=== PATIENT | male | born 1970 | race Caucasian/White ===

== ENCOUNTER 2018-04-29 17:34 | Inpatient (IN) | payer OTHER ==
[~2018-04-29] VITALS: Ht 185.4 cm; Wt 116.4 kg
--- NOTE | ~2018-04-29 | 2DMMODE ---
[facility] [address] [employer] [place] [address] 2 D/M-MODE ECHOCARDIOGRAM Name: BISHOPCEDRICK Room #: [facility] M.R[facility] [id number] Admission: 04/29/18 Attend Phys: Sukhi Rowan, Discharge: Date of : 74 Date of Service: 04/30/18 0911 Report #: [id number] THIS REPORT FOR: //name// APPROVED REPORT Study performed: 04/30/2018 08:24:54 EXAM: Comprehensive 2D, Doppler, and color-flow Echocardiogram Patient Location: Bedside Room #: 201 Status: routine BSA: 2.41 HR: 100 bpm BP: 141/92 mmHg Rhythm: Tachycardia Other Information Study Quality: Good Indications Dyspnea Chest Pain CHF exacerbation. Hx: HTN, tobacco abuse. 2D Dimensions RVDd: 47.94 mm IVSd: 12.03 (7-11mm) LVOT Diam: 25.42 (18-24mm) LVDd: 77.56 mm PWd: 13.98 (7-11mm) Ascending Ao: 42.94 (22-36mm) LVDs: 70.07 (25-40mm) Aortic Root: 41.36 mm Volumes Left Atrial Volume (Systole) Single Plane 4CH: 109.37 mL Single Plane 2CH: 93.05 mL LA ESV Index: 44.00 mL/m2 Aortic Valve AoV Peak Heri.: 1.45 m/s AO Peak Gr.: 8.35 mmHg LVOT Max P.93 mmHg LVOT Max V: 0.70 m/s DK Vmax: 2.44 cm2 Mitral Valve E/A Ratio: 1.4 [facility] [address] [place] [address] 2 D/M-MODE ECHOCARDIOGRAM Name: SHANKARCEDRICK Room #: [address] [place] [address]#: [id number] Admission: 04/29/18 Attend Phys: Sukhi Rowan, Discharge: Date of : 74 Date of Service: 04/30/18 0911 Report #: [id number] MV Decel. Time: 97.48 ms MV E Max Heri.: 0.91 m/s MV A Heri.: 0.67 m/s MV PHT: 28.27 ms IVRT: 55.36 ms Pulmonary Valve PV Peak Heri.: 1.03 m/s PV Peak Gr.: 4.28 mmHg Pulmonary Vein P Vein S: 0.62 m/s P Vein A: 0.36 m/s P Vein D: 0.59 m/s P Vein A Dur.: 100.3 msec P Vein S/D Ratio: 1.05 Tricuspid Valve TR Peak Heri.: 3.16 m/s RAP Estimate: 5.00 mmHg TR Peak Gr.: 39.85 mmHg PA Pressure: 45.00 mmHg Left Ventricle Left ventricle is severely dilated. There is global hypokinesis of the left ventricle. Mild concentric left ventricular hypertrophy. Left ventricular systolic function is severely decreased. LVEF is 20-25%. Right Ventricle Right ventricle is moderately dilated. Right ventricle is moderately hypokinetic. Atria Left atrium is moderately dilated. Right atrium is mildly dilated. Aortic Valve The aortic valve is normal in structure. No aortic regurgitation is present. There is no aortic valvular stenosis. Mitral Valve The mitral valve is normal in structure. Moderate mitral regurgitation. Tricuspid Valve The tricuspid valve is normal in structure. Mild tricuspid regurgitation. Estimated PAP is 45mmHg. Pulmonic Valve [facility] [address] [place] [address] 2 D/M-MODE ECHOCARDIOGRAM Name: SHANKARCEDRICK Room #: [facility] M.R.#: [id number] Admission: 04/29/18 Attend Phys: Sukhi Rowan, Discharge: Date of : 74 Date of Service: 04/30/18 0911 Report #: [id number] The pulmonary valve is normal in structure. Trace pulmonic regurgitation. Great Vessels Aortic root is dilated at 4.1cm. Ascending aorta is dilated at 4.3cm. IVC is normal in size and collapses >50% with inspiration. Pericardium There is no pericardial effusion. <Conclusion> Left ventricular systolic function is severely decreased. There is global hypokinesis of the left ventricle. LVEF 20-25%. Left atrium is moderately dilated. The aortic valve is normal in structure. No aortic regurgitation or stenosis The mitral valve is normal in structure. Moderate mitral regurgitation. Mild tricuspid regurgitation. Estimated pulmonary artery pressure of 45mmHg. Ascending aorta is dilated at 4.3cm. There is no pericardial effusion. <ELECTRONICALLY SIGNED> By: Jamie Alberto MD, FACC 04/30/18910 0 0 Jamie Alberto MD, FACC /INF
--- NOTE | ~2018-04-29 | EKG ---
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 : 1970 Requested By: Richelle Barrios Order Number: [id number] MD: Jamar Baldwin Measurements Intervals Walker Rate: 118 P: 51 OH: 134 QRS: -6 QRSD: 126 T: 82 QT: 354 QTc: 497 Interpretive Statements Sinus tachycardia Probable left atrial enlargement LVH with secondary repolarization abnormality Anterior ST elevation, probably due to LVH Electronically Signed On 04-29-2018 19:33:51 DAIRY ASSOCIATE by Jamar Baldwin [email or web address] <ELECTRONICALLY SIGNED> By: Jamar Baldwin MD 04/29/18 1933 1744 1744 MD BENOIT Bailey
--- NOTE | ~2018-04-29 | CATHLAB ---
[facility] [address] [place] [address] INVASIVE PROCEDURE REPORT Name: CEDRICK SHANKAR Room #: 201-P ADM IN M.R.#: [id number] Admission: 04/29/18 Attend Phys: Sukhi Rowan, Discharge: Date of : 74 Date of Service: 04/30/18 1730 Report #: [id number] THIS REPORT FOR: //name// APPROVED REPORT Study performed: 04/30/2018 14:01:25 Patient Details Patient Status: In-Patient Room #: The patient is a 48 year-old male Event Personnel Buzz Kaplan Investment Strategist, Heydi Bolanos RN RN, Baldomero Davis RN RN, Eliza Soto Monitor, Penelope De La Paz Procedures Performed Art Access - R femoral artery* Sam Access - L femoral vein 19582 Initial Mod Sed Same Phys/QHP Gr5y [id number] 77326 Mod Sed Same Phys/QHP Ea 601021 Right and Left Heart Cath w/or w/o Coronarie [id number] [facility] Hemostasis with Manual pressure Indication CHF Current Status: , Dyspnea, Cardiomyopathy Risk Factors Hypercholesterolemia, Hypertension, Tobacco History () Procedure Narrative The patient was brought urgently to the Cardiac Catheterization Laboratory and was prepped and draped in a sterile manner. The Right Groin^ was infiltrated with 1% Lidocaine subcutaneous anesthesia. A Right Heart Catheterization was performed with a 7 Fr. [place]-Aec catheter and pressure were recorded. Cardiac outputs were obtained by the Fransisco method. A PINNACLE 6FR Sheath #[id number] sheath was inserted into the RFA^. Coronary angiography was performed using coronary diagnostic catheters. The right coronary system was accessed and visualized with a 5FR JR 4 #[id number] catheter. The left coronary system was accessed and visualized with a 5FR JL5 #[id number] catheter. The left ventricle was accessed and visualized with a 5FR PIG 145 ANGLED #[id number] catheter. Left ventricular/Aortic Valve gradient assessed via catheter pullback. Hemostasis was obtained with manual pressure following sheath removal without any complications. The patient tolerated the procedure well and there were no complications associated with the procedure. There was no hematoma. [facility] [address] [place] [address] INVASIVE PROCEDURE REPORT Name: CEDRICK SHANKAR Room #: 201-P [facility] IN .R.#: [id number] Admission: 04/29/18 Attend Phys: Sukhi Rowan, Discharge: Date of : 74 Date of Service: 04/30/18 1730 Report #: [id number] Intraoperative Conscious Sedation Sedation start time: 14:37 Case end Time: 15:21 Fentanyl 50 mcg Versed 3 mg Fluoro Time: 3.40 minutes Dose: DAP 7615.00 cGycm2 621 mGy Contrast Type and Amount: Omnipaque 80 ml Coronary Angiography The patient's coronary anatomy is right dominant. Diagnostic Cath Left Main This is a patent vessel, with no flow-limiting lesions. LAD This is a moderate to large caliber vessel, traveling down the anterior wall and wrapping around the apex. There is no evidence for flow limiting lesions. Diagonal 1 This is a patent vessel, with no flow-limiting lesions. Circumflex This is a patent vessel, with no flow-limiting lesions. OM1 This is a patent vessel, with no flow-limiting lesions. Right Coronary This is a dominant vessel, with no flow-limiting lesions. R PDA This is a patent vessel, with no flow-limiting lesions. RPLV This is a patent vessel, with no flow-limiting lesions. Ramus This is a patent vessel, with no flow-limiting lesions. Left Ventriculography Left Ventriculography was not performed. Ejection Fraction was 20-25% based off patient's Echocardiogram. An LVEDP was measured and there is no gradient across the outflow tract. Hemodynamics The right atrial mean pressure is 26 mmHg. The right ventricular pressure is 65/24 mmHg. The pulmonary artery pressure is 69/46 mmHg with a mean of 55 mmHg. The aortic pressure is 144/115 mmHg with a mean of 129 mmHg. The left ventricular pressure is 141/22 mmHg with a mean of mmHg. The left ventricular end diastolic pressure is 39 mmHg. PaO2 saturation is 59.10 %. Arterial saturation is 97.00 %. The cardiac output using the Fransisco method is 4.37 L/min. The cardiac index using the Fransisco method is 1.81 L/min/m2. [facility] [address] [place] [address] INVASIVE PROCEDURE REPORT Name: CEDRICK SHANKAR Room #: 201-P [facility] IN M.R.#: [id number] Admission: 04/29/18 Attend Phys: Sukhi Rowan, Discharge: Date of : 74 Date of Service: 04/30/181729 Report #: [id number] Conclusion 1. Dilated, nonischemic cardiomyopathy. 2. Angiographically normal coronary arteries. 3. A right heart cardiac catheterization was performed. 4. Recommend medical therapy. <ELECTRONICALLY SIGNED> By: Buzz Kaplan MD 04/30/181729 29 29 Buzz Kaplan MD /INF
[~2018-04-29 17:34] MED LIST: CLEOCIN HCL300 MG PO; IBUPROFEN 800800 M1 PO; MEDROLDOSEPACK PO; VENTOLIN HFA 1818 GM INH
[2018-04-29 17:36] VITALS: BP 183/126
[2018-04-29 17:58] LABS: ABSOLUTE NEUTROPHILS 4.2 thou/uL (1.4-8.2); BASOPHILS 0.9 % (0.0-2.0); EOSINOPHILS 3.1 % (0.0-3.0); HEMATOCRIT 42.7 % (42.0-52.0); HEMOGLOBIN 14.2 gm/dL (14.0-18.0); LYMPHOCYTES 33.8 % (24.0-44.0); MCH 30.4 pg (26.0-34.0); MCHC 33.2 g/dL (28.0-37.0); MCV 91.4 fL (80.0-100.0); MONOCYTES 7.2 % (1.0-8.0); PLATELET COUNT 281 thou/uL (150-400); RBC 4.68 mil/uL (4.50-6.00); RDW 13.8 % (10.5-14.5); WBC 7.6 thou/uL (4.0-11.0)
[2018-04-29 18:07] LABS: ANION GAP 10 mmol/L (7-16); BUN 17 mg/dL (7-18); CALCIUM 8.7 mg/dL (8.5-10.1); CHLORIDE 102 mmol/L (98-107); CO2 26 mmol/L (21-32); CREATININE 1.2 mg/dL (0.7-1.3); GLUCOSE 123 mg/dL (74-106); POTASSIUM 3.8 mmol/L (3.5-5.1); SODIUM 138 mmol/L (136-145)
[2018-04-29 18:16] LABS: ALBUMIN 3.2 g/dL (3.4-5.0); LIPASE 154 U/L (73-393); SGOT 95 U/L (15-37); SGPT 315 U/L (30-65); TOTAL BILIRUBIN 0.5 mg/dL (<0.1-1.0); TOTAL PROTEIN 6.6 g/dL (6.4-8.2); TROPONIN-I <0.06 ng/mL (<0.06)
[2018-04-29 20:18] VITALS: BP 134/104
[2018-04-29 20:42] VITALS: BP 132/95
[2018-04-29 22:22] LABS: CHOLESTEROL 148 mg/dL (<200); HDL CHOLESTEROL 40 mg/dL (>40); LDL CHOLESTEROL 90 mg/dL (<100); TC:HDL 3.7 Ratio (Not establshd); TRIGLYCERIDE 94 mg/dL (<150); VLDL 19 mg/dL (<40)
[2018-04-29 22:23] LABS: SERUM ASSESSMENT Clear
[2018-04-30] VITALS (13 sets, daily range): BP systolic 95–155; BP diastolic 73–99
[2018-04-30 15:09] LABS: PCO2 52.2 mmHg (35.0-45.0); sO2 59.1 % (92.0-98.0)
[2018-04-30 15:11] LABS: PO2 33.8 mmHg (80.0-100.0); pH 7.315 (7.360-7.450)
[2018-04-30 15:11] LABS: BE(vivo) 2.8 mmol/L (-2 to +3); HCO3 30.2 mmol/L (22.0-26.0); PCO2 57.2 mmHg (35.0-45.0); PO2 75.1 mmHg (80.0-100.0)
[2018-04-30 20:49] LABS: AMP/METHAMP POSITIVE (Negative); BARBITURATES Negative (Negative); BENZODIAZEPINES POSITIVE (Negative); COCAINE Negative (Negative); METHADONE Negative (Negative); OPIATES Negative (Negative); PCP Negative (Negative)
[2018-05-01 05:16] VITALS: BP 139/101
[2018-05-01 07:06] LABS: HEMATOCRIT 43.9 % (42.0-52.0); HEMOGLOBIN 15.2 gm/dL (14.0-18.0); MCH 31.5 pg (26.0-34.0); MCHC 34.6 g/dL (28.0-37.0); MCV 90.9 fL (80.0-100.0); RBC 4.83 mil/uL (4.50-6.00); RDW 13.9 % (10.5-14.5)
[2018-05-01 07:16] LABS: CALCIUM 9.2 mg/dL (8.5-10.1); CREATININE 1.2 mg/dL (0.7-1.3); POTASSIUM 3.8 mmol/L (3.5-5.1)
[2018-05-01 07:26] VITALS: BP 143/111
== END 2018-05-01 10:34 | disposition left against medical advice (07) | DRG 286 ==
LOC: ER 17:34 → EROBS 19:41 → 2N 19:41
PROVIDERS: Internal Medicine; Internal Medicine Cardiovascular Disease; Nurse Practitioner Acute Care; Nurse Practitioner Family
PROC: 4A023N8 Measurement of Cardiac Sampling and Pressure, Bilateral, Percutaneous Approach (ICD-10-PCS; principal; 2018-04-30)
PROC: B2111ZZ Fluoroscopy of Multiple Coronary Arteries using Low Osmolar Contrast (ICD-10-PCS; principal; 2018-04-30)
DX: I11.0 Hypertensive heart disease with heart failure (principal); J96.01 Acute respiratory failure with hypoxia; F41.9 Anxiety disorder, unspecified; I50.23 Acute on chronic systolic (congestive) heart failure; I42.9 Cardiomyopathy, unspecified; F17.210 Nicotine dependence, cigarettes, uncomplicated; I16.0 Hypertensive urgency; R74.0 Nonspecific elevation of levels of transaminase and lactic acid dehydrogenase [LDH]; F90.9 Attention-deficit hyperactivity disorder, unspecified type; Z79.899 Other long term (current) drug therapy; Z83.3 Family history of diabetes mellitus; Z82.49 Family history of ischemic heart disease and other diseases of the circulatory system
CPT/HCPCS: 10081